=== PATIENT | female | born 1985 | race Caucasian/White ===

== ENCOUNTER 2017-11-08 15:50 | Inpatient (IN) | payer SELFPAY ==
[~2017-11-08] VITALS: Ht 165.1 cm; Wt 102.9 kg
[2017-11-08 16:47] LABS: HEMATOCRIT 44.9 % (36.0-46.0); MCH 29.2 PG (29.0-34.0); MCHC 31.4 G/DL (30.0-36.0); MEAN PLAT.VOLUME 11.5 uM^3 (9.5-12.4); PLATELET COUNT 217 K/uL (156-360); RBC DIS.WIDTH-SD 44.3 % (39-53); RED BLOOD COUNT 4.83 M/uL (3.80-5.20); WHITE BLOOD COUNT 10.6 K/uL (4.1-10.2)
[2017-11-08 16:59] LABS: CHLORIDE 106 mEq/L (99-109); POTASSIUM 3.8 mEq/L (3.7-5.4); SODIUM 140 mEq/L (136-147)
[2017-11-08 17:02] LABS: GLUCOSE 93 mg/dL (70-99)
[2017-11-08 17:03] LABS: ANION GAP 10 MEQ/L (2-14)
[2017-11-08 17:04] LABS: TOTAL BILIRUBIN 1.1 mg/dL (0.0-1.0)
[2017-11-08 17:05] LABS: ALKALINE PHOSPHATASE 61 IU/L (3-129); SERUM ETHYL ALCOHOL < 10 mg/dL
[2017-11-08 17:06] LABS: GFR ESTIMATE (CALCULATED) > 59 mL/min/
[2017-11-08 17:07] LABS: UREA NITROGEN (BUN) 8 mg/dL (9-23)
[2017-11-08 17:08] LABS: ADD MIUA? YES; BILIRUBIN NEGATIVE; BLOOD NEGATIVE; COLOR YELLOW ((YELLOW)); GLUCOSE (STRIP) NEGATIVE; KETONES 5; LEUKOCYTES SMALL; NITRITE NEGATIVE; PROTEIN (STRIP) 30; SPECIFIC GRAVITY 1.019 (1.000-1.030)
[2017-11-08 17:15] LABS: QUANTITATIVE HCG < 4.0 MIU/ML
[2017-11-08 17:16] LABS: ADD MEDTOX COMMENT Y; AMPHETAMINE NEGATIVE (500 ng/mL); BARBITURATES NEGATIVE (200 ng/mL); BENZODIAZEPINES NEGATIVE (150 ng/mL); COCAINE PRESUMPTIVE POSITIVE (150 ng/mL); INTERNAL CONTROLS VALID? YES; METHADONE NEGATIVE (200 ng/mL); METHAMPHETAMINE NEGATIVE (500 ng/mL); OPIATES (MORPHINE) NEGATIVE (100 ng/mL); OXYCODONE NEGATIVE (100 ng/mL); PHENCYCLIDINE NEGATIVE (25 ng/mL); PROPOXYPHENE NEGATIVE (300 ng/mL); THC CANNABINOIDS PRESUMPTIVE POSITIVE (50 ng/mL); TRICYCLIC ANTIDEPRESSANTS NEGATIVE (300 ng/mL)
[2017-11-08 17:23] LABS: BACTERIA 1+ /HPF; CASTS NONE SEEN /LPF; CRYSTALS NONE SEEN; EPITHELIAL CELLS 2+ /HPF; MUCUS RARE /LPF; RED BLOOD CELLS 0-5 /HPF (0-5)
[2017-11-08 19:19] VITALS: BP 115/64
[2017-11-08] MEDS ORDERED: IBUPROFEN800 MG PO (19:54)
[2017-11-08] MEDS ORDERED: ZIPRASIDONE HCL40 MG PO (19:55)
[2017-11-08] MEDS ORDERED: TRAZODONE HCL150 MG PO (19:56)
[2017-11-09 07:54] VITALS: BP 108/58
[2017-11-09 15:26] VITALS: BP 109/66
[2017-11-10 07:44] VITALS: BP 120/73
[2017-11-10 15:19] VITALS: BP 113/55
[2017-11-11 07:55] VITALS: BP 124/51
[2017-11-11] MEDS ORDERED: ARIPIPRAZOLE10 MG PO (13:18)
== END 2017-11-11 13:37 | disposition home or self-care (01) | DRG 897 ==
LOC: EME 15:50 → 1WEST 17:52 → EDOF 17:52 → 1WEST 17:52 → ENRESERV 19:10 → 1WEST 19:10
PROVIDERS: Emergency Medicine
DX: F11.24 Opioid dependence with opioid-induced mood disorder (principal); F14.24 Cocaine dependence with cocaine-induced mood disorder; F12.288 Cannabis dependence with other cannabis-induced disorder; R45.851 Suicidal ideations; E66.01 Morbid (severe) obesity due to excess calories; Z68.37 Body mass index [BMI] 37.0-37.9, adult; F41.9 Anxiety disorder, unspecified; F32.9 Major depressive disorder, single episode, unspecified; F17.200 Nicotine dependence, unspecified, uncomplicated
CPT/HCPCS: 80053; 81003; 84702; 84999; 85027; 87086; 90837; 97166 GO; 99281; 99285; G0480; Q0177